=== PATIENT | male | born 1975 | race Caucasian/White ===

== ENCOUNTER 2023-09-11 10:23 | Observation (INO) ==
[2023-09-11 13:10] VITALS: BMI 28.8
[2023-09-11] MEDS ORDERED: NS 100 ML IV 100 ML ONE (13:34)
[2023-09-11] MEDS: D5 1/2 NS 1,000 ML 1,000 ML IV SCH (13:39)
[2023-09-11] MEDS: ZOSYN VIAL 3.375 GRAMS 3.375 G in NS 100 ML IV 100 ML IV SCH (13:40)
[2023-09-11] MEDS: PROTONIX INJ 40 MG VIAL IVP SCH (13:47)
[2023-09-11] MEDS ORDERED: REGLAN INJ 10 MG VIAL IVP PRN (14:51)
[2023-09-11] MEDS ORDERED: DILAUDID INJ IVP PRN (14:51)
[2023-09-11] MEDS ORDERED: BARHEMSYS INJ IVP PRN (14:51)
[2023-09-11] MEDS ORDERED: BENADRYL INJ 50 MG VIAL IVP PRN (14:51)
[2023-09-11] MEDS ORDERED: ZOFRAN INJ 4 MG VIAL IVP PRN ×2 (14:51→16:28)
[2023-09-11] MEDS: ZEMURON 100 MG VIAL ONE (14:56)
[2023-09-11] MEDS: DIPRIVAN VIAL 20 ML ONE (14:56)
[2023-09-11] MEDS ORDERED: SUPRANE ONE (14:56)
[2023-09-11] MEDS: QUELICIN (OR ANECTINE) ONE (14:56)
[2023-09-11] MEDS: BRIDION ONE (14:56)
[2023-09-11] MEDS: VERSED ONE (14:56)
[2023-09-11] MEDS: FENTANYL VIAL INJ 250 mcg ONE (14:56)
[2023-09-11] MEDS: PEPCID 20 MG VIAL ONE (15:00)
--- NOTE | 2023-09-11 15:07 | RAD ---
EXAM:CHEST, 1 VIEWHISTORY:SURGICAL CLEARANCE;[facility]a is midline. The cardiac silhouette is unremarkable . The lungs are clear without focal infiltrate or effusion. The bony thorax is unremarkable.IMPRESSION:No acute cardiopulmonary disease.THIS IS AN ELECTRONICALLY VERIFIED FINAL REPORT09/11/2023 3:04 PM - Electronically signed by Yobany Dunlap MD
[2023-09-11] MEDS: LR 1,000 ML IV 1,000 ML IV ONE (15:16)
[2023-09-11] MEDS: BACTROBAN TOPICAL OINT ONE (15:16)
[2023-09-11] MEDS ORDERED: STERILE WATER IRRIGATION IR ONE (15:23)
[2023-09-11] MEDS ORDERED: NS IRRIGATION* 1,000 ML ONE (15:23)
[2023-09-11] MEDS: TORADOL 30 MG VIAL ONE (15:55)
[2023-09-11] MEDS: DILAUDID INJ IVP PRN (17:02)
[2023-09-12] MEDS ORDERED: ZOSYN VIAL 3.375 GRAMS IV ONE (04:30)
[2023-09-12] MEDS ORDERED: NS 100 ML IV 100 ML ONE (04:33)
[2023-09-12 05:58] LABS: BASOPHILS % (AUTO) 0.2 % (0.2-1.0); EOSINOPHILS # (AUTO) 0.3 x10^3/uL (0.0-0.2); EOSINOPHILS % (AUTO) 2.5 % (0.9-2.9); HEMATOCRIT 37.1 % (42.0-54.0); HEMOGLOBIN 12.1 g/dL (13.5-18.0); LYMPHOCYTES # (AUTO) 1.2 X10^3/uL (1.3-2.9); LYMPHOCYTES % (AUTO) 11.3 % (21.0-51.0); MEAN CORPUSCULAR HGB CONC 32.6 g/dL (33.0-35.0); MEAN CORPUSCULAR VOLUME 82.9 fL (80.0-100.0); MEAN PLATELET VOLUME 8.2 fL (7.4-11.0); MONOCYTES # (AUTO) 0.7 x10^3/uL (0.3-0.8); MONOCYTES % (AUTO) 6.4 % (0.0-13.0); NEUTROPHILS # (AUTO) 8.2 x10^3/uL (2.2-4.8); NEUTROPHILS % (AUTO) 79.6 % (42.0-75.0); PLATELET COUNT 311 X10^3/uL (150.0-450.0); RED BLOOD COUNT 4.47 X10^6/uL (4.7-6.0); RED CELL DISTRIBUTION WIDTH 14.5 % (11.6-16.5); WHITE BLOOD COUNT 10.3 X10^3/uL (3.6-10.0)
[2023-09-12 06:12] LABS: ALANINE AMINOTRANSFERASE 35 Units/L (12-78); ALBUMIN 3.3 g/dL (3.4-5.0); ALKALINE PHOSPHATASE 54 Units/L (46-116); ASPARTATE AMINO TRANSFERASE 26 Units/L (15-37); BLOOD UREA NITROGEN 21 mg/dL (7-18); CARBON DIOXIDE 28.7 mmol/L (21-32); CHLORIDE 105 mmol/L (98-107); COR CA(FOR HYPOALB) 8.6 mg/dL (8.5-10.1); CREATININE 1.28 mg/dL (0.70-1.30); GLUCOSE 92 mg/dL (65-99); POTASSIUM 3.8 mmol/L (3.5-5.1); SODIUM 141 mmol/L (136-145); TOTAL PROTEIN 6.3 g/dL (6.4-8.2); eGFR NON BLACK RACES > 60 (>60)
[2023-09-12 07:52] VITALS: BP 113/62; PULSE 71; RESP 18; TEMP 97.6; O2SAT 97
[2023-09-12] MEDS: LEVAQUIN PREMIX IV 500 MG 500 MG/100 ML BAG IV SCH (08:18)
== END 2023-09-12 10:10 | disposition home or self-care (01) ==
LOC: MED/SURG
PROVIDERS: ADMIT Surgery; ATTEND Surgery
DX: R11.2 Nausea with vomiting, unspecified; K80.00 Calculus of gallbladder with acute cholecystitis without obstruction; K21.9 Gastro-esophageal reflux disease without esophagitis; I10 Essential (primary) hypertension; R10.84 Generalized abdominal pain; K56.51 Intestinal adhesions [bands], with partial obstruction